=== PATIENT | male | born 1980 | race Caucasian/White ===

== ENCOUNTER 2016-08-19 10:37 | Emergency (ER) | payer SELFPAY ==
[~2016-08-19] VITALS: Ht 180.3 cm; Wt 91.0 kg
[~2016-08-19 10:37] MED LIST: CEPH500C3 PO; TETR500C2 PO
[2016-08-19 10:42] VITALS: BP 136/95; PULSE 96; RESP 16; TEMP 98.4; O2SAT 96
[2016-08-19] MEDS ORDERED: TIZA2CAP3 PO (10:53)
[2016-08-19] MEDS ORDERED: DICL25 PO (10:53)
[2016-08-19] MEDS ORDERED: SODIUM CHLORIDE 0.9% FLUSH 10 ML FLUSH IV FLUSH PRN (11:15)
[2016-08-19] MEDS ORDERED: MORPHINE SULFATE 4 MG/ML INJ IV PUSH ONE (11:15)
[2016-08-19] MEDS ORDERED: diphenhydrAMINE HCL 50 MG/ML VIAL IV PUSH ONE (11:15)
[2016-08-19] MEDS ORDERED: PROCHLORPERAZINE INJ 10 MG/2 ML VIAL IV PUSH ONE (11:15)
[2016-08-19 11:17] LABS: AUTOMATED NEUTROPHIL # 5.9 TH/MM3 (1.8-7.7); BASOPHIL % 0.5 % (0.0-2.0); EOSINOPHIL # 0.1 TH/MM3 (0-0.4); HEMATOCRIT 42.1 % (39.0-51.0); HEMO FLAGS DIFF FINAL; LYMPH % 22.2 % (9.0-44.0); LYMPHOCYTE # 1.9 TH/MM3 (1.0-4.8); MEAN CELL VOLUME 92.1 FL (80.0-100.0); MEAN CORPUSCULAR HEMOGLOBIN 31.7 PG (27.0-34.0); MEAN CORPUSCULAR HGB CONC 34.4 % (32.0-36.0); MONO % 6.6 % (0.0-8.0); NEUT % 69.7 % (16.0-70.0); PLATELET COUNT 253 TH/MM3 (150-450); RED BLOOD COUNT 4.57 MIL/MM3 (4.50-5.90); RED CELL DISTRIBUTION WIDTH 12.5 % (11.6-17.2); WHITE BLOOD COUNT 8.5 TH/MM3 (4.0-11.0)
[2016-08-19] MEDS: SODIUM CHLOR 0.9% 1000 ML INJ 1,000 ML IV SCH ×2 (11:17→12:24)
[2016-08-19 11:22] VITALS: BP 103/68; PULSE 71; RESP 20; O2SAT 96
--- NOTE | 2016-08-19 11:25 | PD ---
HPI . Abdominal pain Chief Complaint: GI Complaint Time Seen by Provider: 10:55 Travel History International Travel<30 days: No Contact w/Intl Traveler<30days: No Traveled to known affect area: No History of Present Illness HPI The patient presents with the chief complaint of abdominal pain. He reports the onset of symptoms 3 days ago. His pain is associated with nausea, vomiting and diarrhea. He has had subjective fevers and chills. He states that his pain is exacerbated with eating. He currently rates his pain as 3/10. He describes the pain as "knots." He states that he is tolerating fluids well that is not tolerating food. He further reports that his urine is very dark- appearing despite the fact that he is drinking lots of fluids. The patient is curious as to whether or not his symptoms could be related to 2 new medications which were prescribed recently for back pain. Those medications include DICLOFENAC and TIZANIDINE. PFSH Past Medical History Diminished Hearing: No Past Surgical History Appendectomy: Yes Eye Surgery: Yes (FOREIGN BODY REMOVED FROM L EYE) Other Surgery: Yes (LEFT EYE) Social History Alcohol Use: Yes (WEEKENDS) Tobacco Use: Yes Substance Use: Yes (MARIJUANA) Allergies-Medications (Allergen,Severity, Reaction): Coded Allergies: No Known Allergies (Verified , 08/19/16) Reported Meds & Prescriptions Reported Meds & Active Scripts Active Reported Tizanidine (Tizanidine HCl) 2 Mg Cap Unknown Dose PO TID Diclofenac Sodium DR (Diclofenac Sodium) 25 Mg Tabdr Unknown Dose PO BID Review of Systems Except as stated in HPI: all other systems reviewed are Neg General / Constitutional: Positive: Fever, Chills Gastrointestinal: Positive: Nausea, Vomiting, Diarrhea, Abdominal Pain, Loss of Appetite Genitourinary: Positive: Other (dark-colored urine), No: Urgency, Frequency, Dysuria Physical Exam Narrative GENERAL: Awake and alert and in no acute distress. SKIN: Warm and dry. HEAD: Atraumatic. Normocephalic. EYES: Pupils equal and round. Sclerae are anicteric. ENT: No nasal bleeding or discharge. Mucous membranes pink and moist. NECK: Trachea midline. Neck is supple. CARDIOVASCULAR: Regular rate and rhythm. Heart sounds are normal. RESPIRATORY: No accessory muscle use. Lungs are clear with full air movement throughout. GASTROINTESTINAL: Abdomen soft, non-tender, nondistended. I am unable to elicit any right upper quadrant tenderness. I do not palpate a liver edge. MUSCULOSKELETAL: No obvious deformities. No edema. NEUROLOGICAL: Awake and alert. No obvious cranial nerve deficits. Motor grossly within normal limits. Normal speech. PSYCHIATRIC: Appropriate mood and affect; insight and judgment normal. Data Data Last Documented VS Vital Signs Date Time Temp Pulse Resp B/P Pulse Ox O2 Delivery O2 Flow Rate FiO2 08/19/16 13:24 58 20 100/64 98 08/19/16 10:42 98.4 Orders Complete Blood Count With Diff (08/19/16 11:03) Comprehensive Metabolic Panel (08/19/16 11:03) Urinalysis - C+S If Indicated (08/19/16 11:03) Abdomen, Flat & Upright (08/19/16 ) Iv Access Insert/Monitor (08/19/16 11:03) Morphine Inj (Morphine Inj) (08/19/16 11:15) Sodium Chlor 0.9% 1000 Ml Inj (Ns 1000 M (08/19/16 11:03) Sodium Chloride 0.9% Flush (Ns Flush) (08/19/16 11:15) Prochlorperazine Inj (Compazine Inj) (08/19/16 11:15) Diphenhydramine Inj (Benadryl Inj) (08/19/16 11:15) Labs Laboratory Tests Test 08/19/16 08/19/16 11:13 12:45 White Blood Count 8.5 TH/MM3 Red Blood Count 4.57 MIL/MM3 Hemoglobin 14.5 GM/DL Hematocrit 42.1 % Mean Corpuscular Volume 92.1 FL Mean Corpuscular Hemoglobin 31.7 PG Mean Corpuscular Hemoglobin 34.4 % Concent Red Cell Distribution Width 12.5 % Platelet Count 253 TH/MM3 Mean Platelet Volume 7.7 FL Neutrophils (%) (Auto) 69.7 % Lymphocytes (%) (Auto) 22.2 % Monocytes (%) (Auto) 6.6 % Eosinophils (%) (Auto) 1.0 % Basophils (%) (Auto) 0.5 % Neutrophils # (Auto) 5.9 TH/MM3 Lymphocytes # (Auto) 1.9 TH/MM3 Monocytes # (Auto) 0.6 TH/MM3 Eosinophils # (Auto) 0.1 TH/MM3 Basophils # (Auto) 0.0 TH/MM3 CBC Comment DIFF FINAL Differential Comment Sodium Level 140 MEQ/L Potassium Level 3.6 MEQ/L Chloride Level 105 MEQ/L Carbon Dioxide Level 25.9 MEQ/L Anion Gap 9 MEQ/L Blood Urea Nitrogen 10 MG/DL Creatinine 0.94 MG/DL Estimat Glomerular Filtration 92 ML/MIN Rate Random Glucose 95 MG/DL Calcium Level 8.9 MG/DL Total Bilirubin 0.5 MG/DL Aspartate Amino Transf 21 U/L (AST/SGOT) Alanine Aminotransferase 34 U/L (ALT/SGPT) Alkaline Phosphatase 61 U/L Total Protein 6.9 GM/DL Albumin 3.8 GM/DL Urine Collection Type CLEAN CATCH Urine Color YELLOW Urine Turbidity CLEAR Urine pH 6.0 Urine Specific [place] 1.005 Urine Protein NEG mg/dL Urine Glucose (UA) NEG mg/dL Urine Ketones NEG mg/dL Urine Occult Blood NEG Urine Nitrite NEG Urine Bilirubin NEG Urine Leukocyte Esterase NEG Urine RBC 0-3 /hpf Urine Squamous Epithelial 0-5 /hpf Cells Microscopic Urinalysis Comment CULT NOT INDICATED Urine Collection Time 12:45 MDM Medical Decision Making Medical Screen Exam Complete: Yes Emergency Medical Condition: Yes Medical Record Reviewed: Yes (patient has had a previous appendectomy. He has a history of tobacco, THC and alcohol abuse. He reports that he no longer uses THC and that his alcohol use is markedly diminished. He further reports that he is decreasing usage of tobacco.) Differential Diagnosis Differential diagnosis of abdominal pain includes but is not limited to gastritis, pancreatitis, hepatitis, gastroenteritis, gallbladder disease, constipation, urinary retention, UTI, peptic ulcer disease, diverticulitis or appendicitis Narrative Course Patient presents for evaluation of abdominal pain associated with nausea, vomiting and diarrhea. He also reports dark urine. Symptoms all started shortly after starting a new NSAIA and muscle relaxant. I have queried up-to- date. The tizanidine can cause liver damage. CBC & BMP Diagram 08/19/16 11:13 LFTs are normal. UA is normal. Last Impressions Abdomen X-Ray 08/19/16 0000 Signed Impressions: Service Date/Time: Sunday, August 19, 2016 11:25 - CONCLUSION: No acute abdominal abnormality is identified. Facundo Wilson MD The abdominal x-ray was independently viewed by me. In the meantime, this patient has been noted below rest and comfortably. Diagnosis Primary Impression: Abdominal pain Qualified Code: R10.84 - Generalized abdominal pain Additional Impressions: Nausea and vomiting Qualified Code: R11.2 - Non-intractable vomiting with nausea, unspecified vomiting type Diarrhea Qualified Code: R19.7 - Diarrhea, unspecified type Patient Instructions: Abdominal Pain (ED), Acute Diarrhea (ED), Acute Nausea and Vomiting (DC), General Instructions Med/Other Pt SpecificInfo: Prescription(s) given Scripts Promethazine (Phenergan)25 Mg [id number] Mg PO Q6H PRN (NAUSEA OR VOMITING) #12 TAB Ref 0 Prov:Nadege Jacobs MD 08/19/16 Disposition: 01 DISCHARGE HOME Condition: Stable Nadege Jacobs MD Aug 19, 2016 11:25
[2016-08-19 11:35] LABS: CHLORIDE 105 MEQ/L (98-107); POTASSIUM 3.6 MEQ/L (3.5-5.1); SODIUM (NA) 140 MEQ/L (136-145)
[2016-08-19 11:39] LABS: ANION GAP 9 MEQ/L (5-15); BICARBONATE 25.9 MEQ/L (21.0-32.0); BLOOD UREA NITROGEN 10 MG/DL (7-18)
[2016-08-19 11:42] LABS: ALT (GPT) 34 U/L (12-78); AST (GOT) 21 U/L (15-37); GLOMERULAR FILTRATION RATE 92 ML/MIN (>89)
[2016-08-19 11:44] LABS: TOTAL BILIRUBIN ADULT 0.5 MG/DL (0.2-1.0)
[2016-08-19 11:45] LABS: ALKALINE PHOSPHATASE 61 U/L (45-117)
--- NOTE | 2016-08-19 11:47 | RADHPO ---
EXAM DATE/TIME: 08/19/2016 11:25 [facility] COMPARISON: No previous studies available for comparison. INDICATIONS : Abdomen pain, nausea, diarrhea MEDICAL HISTORY : None. SURGICAL HISTORY : Appendectomy. ENCOUNTER: Initial ACUITY: 4 - 6 days PAIN SCORE: 5/10 LOCATION: Bilateral abdomen FINDINGS: Supine and upright views of the abdomen demonstrate air within small and large bowel in a nonobstruct will pattern. No abnormal calcifications are identified. Liver shadow is enlarged. No abnormal mass ef fect is appreciated. Upright image demonstrates no free intraperitoneal air or significant air-fluid level. Visualized bones demonstrate no acute finding and lower lung zones are clear. CONCLUSION: No acute abdominal abnormality is identified. Facundo Wilson MD on August 19, 2016 at 11:44 Board Certified Radiologist. This report was verified electronically.
[2016-08-19 12:18] VITALS: BP 97/61; PULSE 54; RESP 20; O2SAT 96
[2016-08-19 12:49] LABS: BLOOD, URINE NEG (NEG); GLUCOSE,URINE NEG (NEG); KETONE, URINE NEG (NEG); NITRITE,URINE NEG (NEG)
[2016-08-19 13:24] VITALS: BP 100/64; PULSE 58; RESP 20; O2SAT 98
[2016-08-19 13:26] LABS: METHOD OF COLLECTION CLEAN CATCH; URINE COLOR YELLOW (YELLW/STRAW)
[2016-08-19 13:27] LABS: COMMENT (UR) CULT NOT INDICATED; CULTURE IF INDICATED CULT NOT INDICATED; RBC, URINE 0-3 /hpf (0-3); SQUAMOUS EPITHELIAL CELL URINE 0-5 /hpf (0-5)
[2016-08-19] MEDS ORDERED: PROM25TA10 PO (13:32)
== END 2016-08-19 13:55 | disposition home or self-care (01) ==
LOC: PHED 10:37
DX: R10.84 Generalized abdominal pain (principal); R11.2 Nausea with vomiting, unspecified; R19.7 Diarrhea, unspecified
CPT/HCPCS: 74020; 80053; 81001; 85025; 96361; 96374; 96375; 99284; J0780; J1200; J2270; J7030